=== PATIENT | female | born 1980 | race Caucasian/White ===

== ENCOUNTER 2017-03-06 09:49 | Emergency (ER) | payer OTHER ==
[2017-03-06 09:55] VITALS: BP 121/79; PULSE 75; RESP 16; TEMP 98.2; O2SAT 96
[2017-03-06] MEDS ORDERED: PROPARACAINE 0.5% 15 ML OPHT DROP OP ONE (09:56)
[2017-03-06] MEDS ORDERED: GENTAMICIN 0.3% DROPS PREPACK OPHT.BTL TAKEHOME ONE (09:56)
[2017-03-06] MEDS ORDERED: FLUORESCEIN SODIUM 1 MG STRIP OP ONE ×2 (09:59→10:00)
--- NOTE | 2017-03-06 10:13 | EDPHY ---
H & P Stated Complaint: scratched in l eye by her child accidentally Source: Patient, Family () - Personal History LMP (Females 10-55): Over 28 Days Ago Current Tetanus/Diphtheria Vaccine: Yes - Medical/Surgical History Hx Asthma: No Hx Chronic Respiratory Disease: No Hx Diabetes: No Hx Cardiac Disease: No Hx Renal Disease: No Hx Cirrhosis: No Hx Alcoholism: No Hx HIV/AIDS: No Hx Splenectomy or Spleen Trauma: No Other PMH: denies - Social History Smoking Status: Never smoked Time Seen by Provider: 03/06/17 10:09 HPI/ROS: HPI: This is a 36-year-old female who presents with Chief Complaint: Scratch of left eye Location: left eye Quality: Scratch Duration: 2 hr prior to arrival Signs and Symptoms:+ note ocular discharge, + tearing, + visual blurriness, no headache, no dizziness, no floaters Timing: Sudden Severity: [id number] Context: Patient is current breast-feeding, presents with her youngest child accidentally scratching her with his nails approximately 2 hr prior to arrival. She reports immediate pain in the left eye around 0 1 and o'clock position, tearing, light sensitivity. She does not wear contact. She washed her eye out thoroughly with water. drove her to the ER. She has an eye doctor at [facility] that she sees regularly. Modifying Factors: Irrigated with water Comment: ROS: see HPI Constitutional: No fever, no chills, no weight loss Eyes: No blurred vision Respiratory: No shortness of breath, no cough Cardiovascular: No chest pain Gastrointestinal: No nausea, no vomiting, no diarrhea Genitourinary: No dysuria Extremities: No myalgias Neurologic: No weakness, no numbness Skin: No rashes Hematologic: No bruising, no bleeding MEDICAL/SURGICAL/SOCIAL HISTORY: Medical history: Generally healthy. Does not take any regular medications. Surgical history: Denies Social history: . Currently breast-feeding. Visual Acuity: noted from Nurse's notes. Pupils: equal round and reactive to light. EOMI. Lids: no edema or swelling Skin: no proptosis, no periorbital erythema or swelling, no vesicles Conjunctivae: not injected, no discharge Cornea: exam with fluorescein shows 2 o'clock uptake consistent with Anterior chamber: normal, no hyphema or hypopyon (Sheree Etienne) Constitutional: Initial Vital Signs Temperature (C) 36.8 C 03/06/17 09:52 Heart Rate 75 03/06/17 09:52 Respiratory Rate 16 03/06/17 09:52 Blood Pressure 121/79 H 03/06/17 09:52 O2 Sat (%) 96 03/06/17 09:52 O2 Delivery Mode Room Air Allergies/Adverse Reactions: amoxicillin Allergy (Verified 03/06/17 09:52) cephalexin [From Keflex] Allergy (Verified 03/06/17 09:52) Home Medications: Medication Instructions Recorded Ketorolac 0.5% [Acular 0.5% Opht 1 drops LEFTEYE Q6 PRN #1 opht.btl 03/06/17 Drops (*)] Medical Decision Making ED Course/Re-evaluation: Anesthetic placed, Fluorescein filled corneal defects and blood at the 2 o' clock position. Consistent with corneal abrasion. Relief of ocular discomfort with anesthetic placement. Not a contact lens wear. No signs of vesicles/Shirley sign/irregular pupils/hyphema/corneal ulcer/foreign body Gentamicin drops placed. This patient was seen under the supervision of my secondary supervising physician. I evaluated care for this patient independently. Patient's presentation, labs/imaging, treatment and plan of care were discussed with secondary supervising physician. (Sheree Etienne) Evaluated this patient and discussed the case with bhanu red. This patient has a mild corneal abrasion from her child fingernail. She will get antibiotic drops and follow up with Ophthalmology. (Rick Salazar) Differential Diagnosis: Differential diagnosis includes not limited to corneal abrasion, episcleritis, ocular foreign body, conjunctivitis, conjunctivae laceration. (Sheree Etienne) - Data Points Medications Given: Discontinued Medications Fluorescein Sodium (Iotpc-U-Adonq) 1 mg OP EDNOW ONE Stop: 03/06/17 10:01 Last Admin: 03/06/17 10:03 Dose: 1 mg Gentamicin Sulfate (Gentak 0.3% Opht Drops Prepack) 1 btl TAKEHOME EDNOW ONE Stop: 03/06/17 09:57 Last Admin: 03/06/17 10:03 Dose: 1 btl Proparacaine HCl (Alcaine 0.5%) 1 drops OP EDNOW ONE Stop: 03/06/17 09:57 Last Admin: 03/06/17 10:01 Dose: 1 drop Departure - Departure Disposition: Home, Routine, Self-Care Clinical Impression: Corneal abrasion, left Qualifiers: Encounter type: initial encounter Qualified Code(s): S05.02XA - Injury of conjunctiva and corneal abrasion without foreign body, left eye, initial encounter Condition: Good Instructions: Corneal Abrasion (ED) Additional Instructions: Apply cool compress/ice to the periorbital area to 3 times per day for 20 min at a time for the next 1-2 days. Apply gentamicin solution drops 2 year ; 2-3 every 6-8 hours for the next 5 days. Use Ketoralac eyedrops every 6 hr for the next 2-3 days for any ocular pain. Take Tylenol 650 mg every 4 hours as needed for pain. Tetanus prophylaxis not indicated. Minor corneal abrasions will heal in the next 48-72 hours. It is recommend that you follow up with Ophthalmology in the next 2-3 days. Referrals: Xiang Diaz MD [Medical Doctor] - As per Instructions Prescriptions: Ketorolac 0.5% [Acular 0.5% Opht Drops (*)] 1 drops LEFTEYE Q6 PRN #1 opht.btl PRN Reason: Pain, Moderate
== END 2017-03-06 10:40 | disposition home or self-care (01) ==
DX: S05.02XA Injury of conjunctiva and corneal abrasion without foreign body, left eye, initial encounter (principal); X58.XXXA Exposure to other specified factors, initial encounter